=== PATIENT | male | born 1970 | race Caucasian/White ===

== ENCOUNTER 2017-01-03 13:55 | Emergency (ER) | payer OTHER ==
[2017-01-03 14:13] VITALS: BP 144/101; PULSE 79; RESP 16; TEMP 97.5; O2SAT 99
--- NOTE | 2017-01-03 14:54 | EDPHY ---
ED Progress Note Narrative: 1451: I went to evaluate the patient. He is not in the room. I discussed this with the nurse. (Triny) She stated that he did not want to come back into the emergency department. 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 He was not seen by me in the emergency department
== END 2017-01-03 15:45 | disposition left against medical advice (07) ==
DX: Z53.21 Procedure and treatment not carried out due to patient leaving prior to being seen by health care provider (principal)

== ENCOUNTER → 2017-06-08 | Outpatient (CLI) | payer OTHER ==
[~2017-06-08] MED LIST: IOPAMIDOL (ISOVUE-300) 100 ML BTL ONE
== END ==
LOC: CIMAGING 11:30
PROVIDERS: ATTEND Internal Medicine Gastroenterology
DX: K50.019 Crohn's disease of small intestine with unspecified complications (principal)
CPT/HCPCS: 74177-PO; Q9967

== ENCOUNTER → 2017-07-20 | Outpatient (CLI) | payer OTHER | LOC: FIMAGING 08:21 | PROVIDERS: ATTEND Internal Medicine Gastroenterology | DX: K50.019 Crohn's disease of small intestine with unspecified complications (principal); K52.9 Noninfective gastroenteritis and colitis, unspecified ==

== ENCOUNTER → 2017-10-29 | Outpatient (CLI) | payer OTHER | LOC: FIMAGING 08:27 | PROVIDERS: ATTEND Internal Medicine Gastroenterology | DX: K50.00 Crohn's disease of small intestine without complications (principal) ==